=== PATIENT | female | born 1960 | race Caucasian/White ===

== ENCOUNTER 2020-05-21 06:58 | Emergency (ER) | payer MEDICAID ==
[~2020-05-21] VITALS: Ht 175.3 cm; Wt 111.9 kg
[2020-05-21 08:00] LABS: BASOPHILS % (AUTO) 1 % (0-1); EOSINOPHILS % (AUTO) 1 % (1-7); LYMPHOCYTES % (AUTO) 15 % (22-44); MEAN CORPUSCULAR HEMOGLOBIN 29.9 pg (27.0-34.8); MEAN CORPUSCULAR HGB CONC 33.4 g/dL (32.4-35.8); MEAN PLATELET VOLUME 10.5 fL (7.4-10.4); MONOCYTES % (AUTO) 6 % (2-9); NEUTROPHILS % (AUTO) 76 % (42-75); PLATELET COUNT 188 x10^3/uL (130-400); RED BLOOD COUNT 5.24 x10^6/uL (3.82-5.3); RED CELL DISTRIBUTION WIDTH 14.6 % (9.6-15.2)
[2020-05-21] MEDS ORDERED: SODIUM CHLORIDE FLUSH 10ML SYR IVF ONE (08:00)
[2020-05-21] MEDS ORDERED: SODIUM CHLORIDE 0.9% 1,000ML IVBOLUS ONE (08:00)
[2020-05-21 08:03] LABS: MD NO
[2020-05-21 08:06] LABS: ALANINE AMINOTRANSFERASE 69 U/L (12-78); ALBUMIN 3.8 g/dL (3.4-5.0); ANION GAP 8 mmol/L (5-15); CALCIUM 9.8 mg/dL (8.5-10.1); CHLORIDE 105 mmol/L (98-107); CREATININE 1.06 mg/dL (0.55-1.02)
[2020-05-21 08:08] LABS: ALKALINE PHOSPHATASE 93 U/L (45-117); BILIRUBIN,TOTAL 0.3 mg/dL (0.2-1.0); TOTAL PROTEIN 8.5 g/dL (6.4-8.2)
--- NOTE | 2020-05-21 08:35 | NUR ---
PT REFUSING TO ANSWER ANY QUESTIONS. PT STATED SHE HAS ALREADY TALKED TO ENOUGH PEOPLE, SHE JUST WANTS TO KNOW IF HER HAND IS BROKEN.
[2020-05-21] MEDS ORDERED: CLINDAMYCIN PMX 900MG/50ML 50 ML IV ONE (09:00)
--- NOTE | 2020-05-21 09:40 | NUR ---
PT WALKING OUT OF ROOM REPEATEDLY TO ASK DIFFERENT STAFF FOR SOMEONE TO COME INTO HER ROOM. PT ASKED TO RETURN TO HER ROOM AND RN WILL BE IN.
--- NOTE | 2020-05-21 10:27 | NUR ---
[employer] ATTEMPTED SPLINT PLACEMENT, PT REFUSED SPLINT STATING "I AM NOT GOING TO DEAL WITH THAT ON MY HAND I JUST WANT ANTIBIOTICS AND I WANT TO LEAVE." PT EDUCATED ON PURPOSE OF SPLIT AND PT VERBALIZES UNDERSTANDING AND AGAIN REFUSED.
[2020-05-21] MEDS ORDERED: CLINDAMYCIN PMX 900MG/50ML 50 ML ONE (10:29)
--- NOTE | 2020-05-21 10:30 | NUR ---
PT REFUSED SPLINT PLACEMENT. STATED SHE JUST WANTS HER BOTTLE OF ABX AND THEN TO GO HOME.
[2020-05-21 10:37] VITALS: BP 117/77
--- NOTE | 2020-05-21 11:11 | NUR ---
PT SMOKING IN HER ROOM. PT ASKED TO PUT THE CIGARETTE OUT AND NOT SMOKE WHILE IN HER ROOM. SECURITY NOTIFIED, stated the system was not set off at this time.
== END 2020-05-21 11:23 | disposition home or self-care (01) ==
LOC: ED 07:55
DX: L03.113 Cellulitis of right upper limb (principal); J44.9 Chronic obstructive pulmonary disease, unspecified; E78.5 Hyperlipidemia, unspecified; E11.9 Type 2 diabetes mellitus without complications; I25.10 Atherosclerotic heart disease of native coronary artery without angina pectoris; Z86.73 Personal history of transient ischemic attack (TIA), and cerebral infarction without residual deficits; Z90.710 Acquired absence of both cervix and uterus; Z88.1 Allergy status to other antibiotic agents; Z88.8 Allergy status to other drugs, medicaments and biological substances
CPT/HCPCS: 36415; 73130; 80053; 85025; 87040; 93971; 96361; 96365; 99285; J7030

== ENCOUNTER 2020-06-16 10:17 | Emergency (ER) | payer MEDICAID ==
[~2020-06-16] VITALS: Ht 177.8 cm; Wt 112.4 kg
--- NOTE | 2020-06-16 10:39 | NUR ---
[email or web address]
[2020-06-16 10:54] VITALS: BP 126/70
--- NOTE | 2020-06-16 11:15 | NUR ---
RESIDENT IN TO SPEAK WITH PT.
== END 2020-06-16 11:33 | disposition home or self-care (01) ==
LOC: ED 11:20
DX: F41.9 Anxiety disorder, unspecified (principal); Z76.0 Encounter for issue of repeat prescription; J44.9 Chronic obstructive pulmonary disease, unspecified; I25.10 Atherosclerotic heart disease of native coronary artery without angina pectoris; E11.9 Type 2 diabetes mellitus without complications; E78.5 Hyperlipidemia, unspecified; Z88.0 Allergy status to penicillin; Z88.8 Allergy status to other drugs, medicaments and biological substances
CPT/HCPCS: 99281

== ENCOUNTER 2020-07-11 14:26 | Emergency (ER) | payer MEDICAID ==
[~2020-07-11] VITALS: Ht 177.8 cm; Wt 111.7 kg
[2020-07-11 14:37] VITALS: BP 105/69
--- NOTE | 2020-07-11 15:13 | NUR ---
DARREL, QUINN Gonzalez at bedside for eval.
[2020-07-11] MEDS ORDERED: DIAZEPAM 5 MG TABLET ONE (15:20)
[2020-07-11] MEDS ORDERED: DIAZEPAM 5 MG TABLET PO ONE (15:30)
== END 2020-07-11 15:46 | disposition home or self-care (01) ==
LOC: ED 15:39
DX: F41.1 Generalized anxiety disorder (principal); E11.9 Type 2 diabetes mellitus without complications; J44.9 Chronic obstructive pulmonary disease, unspecified; I25.10 Atherosclerotic heart disease of native coronary artery without angina pectoris; F17.210 Nicotine dependence, cigarettes, uncomplicated; Z76.0 Encounter for issue of repeat prescription; Z72.9 Problem related to lifestyle, unspecified; Z86.73 Personal history of transient ischemic attack (TIA), and cerebral infarction without residual deficits; Z90.710 Acquired absence of both cervix and uterus
CPT/HCPCS: 99283; 99406